=== PATIENT | female | born 1980 | race Caucasian/White ===

== ENCOUNTER 2022-05-26 12:32 | Emergency (ER) | payer BC, SELFPAY ==
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
[2022-05-26 12:41] VITALS: BP 139/84; PULSE 77; RESP 18; TEMP 36.8; O2SAT 99
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
[2022-05-26] MEDS: Cyclobenzaprine 10 MG TAB PO (12:56)
[2022-05-26] MEDS: oxyCODONE 5 mg/Acetaminophen 325 mg TAB 1 TAB PO (12:58)
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
== END 2022-05-26 14:23 | disposition home or self-care (01) ==
PROVIDERS: Emergency Provider Registered Nurse Emergency
DX: S43.102A Unspecified dislocation of left acromioclavicular joint, initial encounter (principal); S09.90XA Unspecified injury of head, initial encounter; V18.4XXA Pedal cycle driver injured in noncollision transport accident in traffic accident, initial encounter
CPT/HCPCS: 99284; 71046; 73000; 73030